=== PATIENT | male | born 1960 | race Caucasian/White ===

== ENCOUNTER 2017-03-22 10:54 | Emergency (ER) | payer OTHER ==
[~2017-03-22] VITALS: Ht 177.8 cm; Wt 97.4 kg
[2017-03-22 11:52] LABS: MCH 35.4 PG (29.0-34.0); MCHC 35.5 G/DL (30.0-36.0); MCV 99.6 FL (86-99); MEAN PLAT.VOLUME 9.6 uM^3 (9.0-12.4); PLATELET COUNT 197 K/uL (156-360); RBC DIS.WIDTH-SD 44.4 % (39-53); RED BLOOD COUNT 4.72 M/uL (4.00-5.50); WHITE BLOOD COUNT 8.2 K/uL (4.1-10.2)
[2017-03-22 12:02] LABS: CHLORIDE 99 mEq/L (99-109); POTASSIUM 4.7 mEq/L (3.7-5.4); SODIUM 135 mEq/L (136-147)
[2017-03-22 12:04] LABS: GLUCOSE 92 mg/dL (70-99)
[2017-03-22 12:05] LABS: ANION GAP 12 MEQ/L (2-14)
[2017-03-22 12:08] LABS: GFR ESTIMATE (CALCULATED) > 59 mL/min/; UREA NITROGEN (BUN) 3 mg/dL (9-23)
[2017-03-22] MEDS ORDERED: VENTOLIN HFA18 GM IH (15:09)
[2017-03-22] MEDS ORDERED: TESSALON PERLE100 MG PO (15:09)
[2017-03-22 16:33] VITALS: BP 118/86
== END 2017-03-22 16:34 | disposition home or self-care (01) ==
LOC: EME 10:54
DX: J20.9 Acute bronchitis, unspecified (principal); F17.200 Nicotine dependence, unspecified, uncomplicated; Z71.6 Tobacco abuse counseling
CPT/HCPCS: 71020; 80048; 85027; 94640; 94640 76; 99281; 99285; J7512